=== PATIENT | male | born 1975 | race Hispanic/Latino ===

== ENCOUNTER 2025-03-08 10:38 | Emergency (ER) | payer SELFPAY ==
[~2025-03-08] VITALS: Ht 170.2 cm; Wt 81.6 kg
[2025-03-08 10:40] VITALS: TEMP 98.9
[2025-03-08 12:26] VITALS: PULSE 96; RESP 16; O2SAT 100
== END 2025-03-08 12:30 | disposition home or self-care (01) ==
LOC: ER 11:16
DX: K62.89 Other specified diseases of anus and rectum (principal); K60.2 Anal fissure, unspecified; F17.210 Nicotine dependence, cigarettes, uncomplicated
CPT/HCPCS: 99283